=== PATIENT | female | born 1945 | race Caucasian/White ===

== ENCOUNTER 2025-06-05 18:26 | Emergency (ER) | payer MEDICARE ==
[2025-06-05] MEDS ORDERED: HYDROcodone/Acetaminophen 5/325 mg Tablet ONE (22:17)
[2025-06-05] MEDS ORDERED: predniSONE 20 MG TAB ONE (22:18)
== END 2025-06-05 21:46 | disposition home or self-care (01) ==
LOC: CSHERS 18:26
DX: M10.9 Gout, unspecified (principal); E11.9 Type 2 diabetes mellitus without complications; I12.9 Hypertensive chronic kidney disease with stage 1 through stage 4 chronic kidney disease, or unspecified chronic kidney disease; N18.30 Chronic kidney disease, stage 3 unspecified
CPT/HCPCS: 99283; J7512